=== PATIENT | female | born 1970 | race Caucasian/White ===

== ENCOUNTER 2018-06-25 12:52 | Outpatient (CLI) | payer OTHER | END 2018-06-25 12:56 | disposition home or self-care (01) | LOC: MAMO-SONO 12:52 | DX: Z12.31 Encounter for screening mammogram for malignant neoplasm of breast (principal); N64.4 Mastodynia; N60.11 Diffuse cystic mastopathy of right breast; N60.12 Diffuse cystic mastopathy of left breast ==